=== PATIENT | female | born 1955 | race Caucasian/White ===

== ENCOUNTER 2019-12-26 10:02 | Observation (INO) ==
[2019-12-26] MEDS ORDERED: Ondansetron 4 MG/2 ML VIAL IVP ONE (10:21)
[2019-12-26 10:36] LABS: Basophils # 0.1 K/mcL (0.0-0.2); Basophils % 0.8 %; Eosinophils # 0.5 K/mcL (0.0-0.6); Eosinophils % 3.4 %; Hematocrit 42.1 % (35.3-44.9); Hemoglobin 13.6 g/dL (11.5-15.4); Immature Granulocytes % 1.2 % (0-4); Lymphocytes # 2.9 K/mcL (0.6-4.6); Lymphocytes % 18.7 %; Mean Corpuscular HGB Conc 32.3 g/dL (31.6-35.5); Mean Corpuscular Hemoglobin 29.8 pg (28.0-33.3); Mean Corpuscular Volume 92.1 fL (83.0-100.0); Mean Platelet Volume 9.3 fL (9.4-12.4); Monocytes % 6.1 %; Neutrophils # 10.8 K/mcL (1.6-8.9); Platelet Count 378 K/mcL (140-400); Red Blood Count 4.57 M/mcL (3.82-4.97); Red Cell Distribution Width 13.9 % (11.5-14.5); Segmented Neutrophils % 69.8 %; White Blood Count 15.5 K/mcL (4.3-11.1)
[2019-12-26] MEDS ORDERED: 0.9 % Sodium Chloride 1,000 ML IVC ONE (10:53)
[2019-12-26] MEDS ORDERED: Vancomycin 1,750 MG/517.5 ML IV.SOLN IVPB ONE (10:59)
[2019-12-26 11:20] LABS: BUN/Creatinine Ratio 13 (6-26); Blood Urea Nitrogen 11 mg/dL (8-23); C-Reactive Protein 66 mg/L (Less than 10); Carbon Dioxide 20 mEq/L (23-29); Chloride 101 mEq/L (98-107); Glucose 324 mg/dL (70-105); Osmolality,Calculated 290 (280-300); Potassium 3.7 mEq/L (3.5-5.1); Sodium 134 mEq/L (136-145); eGFR For African Americans > 60 (> 60); eGFR For Non-African Americans > 60 (> 60)
[2019-12-26] MEDS ORDERED: Naloxone 0.4 MG/ML INJ IVP PRN (11:52)
[2019-12-26] MEDS ORDERED: Ondansetron 4 MG/2 ML VIAL IVP PRN (11:52)
[2019-12-26] MEDS ORDERED: D5% in Water 1,000 ML IVC PRN (11:54)
[2019-12-26] MEDS ORDERED: Dextrose Gel 15 GM/37.5 ML TUBE PO PRN ×2 (11:54)
[2019-12-26] MEDS ORDERED: *HR* Dextrose 50 % in Water (Syg) 50 ML SYRINGE IVP PRN (11:54)
[2019-12-26] MEDS ORDERED: Ipratropium/Albuterol Neb 3 ML IH PRN (12:19)
[2019-12-26] MEDS: Insulin LISPRO 300 UNITS/3 ML VIAL SQ SCH ×3 (13:23→21:05)
[2019-12-26] MEDS: *HR* Heparin 5,000 UNIT/ML VIAL SQ SCH ×2 (13:30→21:11)
[2019-12-26] MEDS: 0.9 % Sodium Chloride 1,000 ML IVC SCH (13:30)
[2019-12-26] MEDS: Silvasorb 44.4 ML TUBE TP SCH (19:01)
[2019-12-26] MEDS ORDERED: Furosemide 20 MG TABLET PO PRN (19:09)
[2019-12-26] MEDS ORDERED: Lactulose Oral Soln 20 GM/30 ML UDC PO PRN (19:09)
[2019-12-26] MEDS ORDERED: Nitroglycerin 0.4 MG TAB.SUBL SL PRN (19:09)
[2019-12-26] MEDS ORDERED: Loratadine 10 MG TABLET PO SCH (21:00)
[2019-12-26] MEDS: Famotidine 20 MG TABLET PO SCH (21:03)
[2019-12-26] MEDS: hydrOXYzine pamoate 25 MG CAPSULE PO SCH (21:04)
[2019-12-26] MEDS: Insulin DETEMIR 100 UNIT/ML X5UNITS SQ SCH (21:11)
[2019-12-27] MEDS ORDERED: Vancomycin 1,750 MG/517.5 ML IV.SOLN IVPB SCH
[2019-12-27] MEDS: *HR* Heparin 5,000 UNIT/ML VIAL SQ SCH ×3 (05:52→22:04)
[2019-12-27] MEDS: 0.9 % Sodium Chloride 1,000 ML IVC SCH (05:55)
[2019-12-27 07:43] LABS: Basophils # 0.1 K/mcL (0.0-0.2); Basophils % 0.9 %; Eosinophils # 0.6 K/mcL (0.0-0.6); Eosinophils % 4.8 %; Hematocrit 39.1 % (35.3-44.9); Hemoglobin 12.4 g/dL (11.5-15.4); Immature Granulocytes % 1.6 % (0-4); Lymphocytes # 3.3 K/mcL (0.6-4.6); Lymphocytes % 25.1 %; Mean Corpuscular HGB Conc 31.7 g/dL (31.6-35.5); Mean Corpuscular Hemoglobin 29.5 pg (28.0-33.3); Mean Corpuscular Volume 93.1 fL (83.0-100.0); Mean Platelet Volume 9.3 fL (9.4-12.4); Monocytes # 0.9 K/mcL (0.0-1.3); Monocytes % 7.1 %; Platelet Count 367 K/mcL (140-400); Red Cell Distribution Width 13.9 % (11.5-14.5); Segmented Neutrophils % 60.5 %; White Blood Count 13.2 K/mcL (4.3-11.1)
[2019-12-27 08:05] LABS: BUN/Creatinine Ratio 11 (6-26); Blood Urea Nitrogen 8 mg/dL (8-23); Calcium 8.3 mg/dL (8.6-10.3); Carbon Dioxide 20 mEq/L (23-29); Chloride 107 mEq/L (98-107); Glucose 240 mg/dL (70-105); Osmolality,Calculated 288 (280-300); Potassium 4.1 mEq/L (3.5-5.1); Sodium 136 mEq/L (136-145); eGFR For African Americans > 60 (> 60); eGFR For Non-African Americans > 60 (> 60)
[2019-12-27] MEDS: Insulin LISPRO 300 UNITS/3 ML VIAL SQ SCH ×4 (08:23→22:03)
[2019-12-27] MEDS: predniSONE 10 MG TABLET PO SCH (08:24)
[2019-12-27] MEDS: Fenofibrate 54 MG TABLET PO SCH (08:24)
[2019-12-27] MEDS: Potassium Citrate 10 MEQ TABLET.ER PO SCH (08:24)
[2019-12-27] MEDS: Famotidine 20 MG TABLET PO SCH ×2 (08:25→22:02)
[2019-12-27] MEDS: Metoprolol XL (24 HR) Succ 25 MG TAB.ER.24H PO SCH (08:25)
[2019-12-27] MEDS: Folic Acid 1 MG TABLET PO SCH (08:25)
[2019-12-27] MEDS: Topiramate 100 MG TABLET PO SCH (08:25)
[2019-12-27] MEDS: Aspirin 81 MG TAB.CHEW PO SCH (08:25)
[2019-12-27] MEDS: Insulin DETEMIR 100 UNIT/ML X5UNITS SQ SCH ×2 (08:27→22:03)
[2019-12-27] MEDS: Silvasorb 44.4 ML TUBE TP SCH (08:45)
[2019-12-27] MEDS ORDERED: NON-FORMULARY MEDICATION 1 EACH EACH (Ezetimibe [Zetia] 10 MG) PO SCH (09:00)
[2019-12-27] MEDS: Vancomycin 1,500 MG/265 ML IV.SOLN IVPB SCH (12:41)
[2019-12-27] MEDS ORDERED: Insulin LISPRO 300 UNITS/3 ML VIAL SQ SCH (17:00)
[2019-12-27] MEDS: hydrOXYzine pamoate 25 MG CAPSULE PO SCH (22:02)
[2019-12-28] MEDS: Vancomycin 1,500 MG/265 ML IV.SOLN IVPB SCH ×2 (00:24→12:06)
[2019-12-28 02:41] LABS: Basophils # 0.1 K/mcL (0.0-0.2); Basophils % 1.1 %; Eosinophils # 0.6 K/mcL (0.0-0.6); Hematocrit 37.3 % (35.3-44.9); Hemoglobin 11.9 g/dL (11.5-15.4); Immature Granulocytes % 1.3 % (0-4); Lymphocytes # 3.5 K/mcL (0.6-4.6); Lymphocytes % 28.9 %; Mean Corpuscular HGB Conc 31.9 g/dL (31.6-35.5); Mean Corpuscular Hemoglobin 29.5 pg (28.0-33.3); Mean Corpuscular Volume 92.6 fL (83.0-100.0); Mean Platelet Volume 9.4 fL (9.4-12.4); Monocytes # 0.9 K/mcL (0.0-1.3); Monocytes % 7.2 %; Neutrophils # 6.8 K/mcL (1.6-8.9); Platelet Count 349 K/mcL (140-400); Red Blood Count 4.03 M/mcL (3.82-4.97); Red Cell Distribution Width 13.8 % (11.5-14.5); Segmented Neutrophils % 56.5 %
[2019-12-28 02:59] LABS: BUN/Creatinine Ratio 13 (6-26); Blood Urea Nitrogen 12 mg/dL (8-23); Calcium 8.5 mg/dL (8.6-10.3); Carbon Dioxide 22 mEq/L (23-29); Chloride 105 mEq/L (98-107); Glucose 213 mg/dL (70-105); Osmolality,Calculated 284 (280-300); Sodium 134 mEq/L (136-145); eGFR For African Americans > 60 (> 60); eGFR For Non-African Americans > 60 (> 60)
[2019-12-28] MEDS: *HR* Heparin 5,000 UNIT/ML VIAL SQ SCH ×2 (06:37→14:30)
[2019-12-28] MEDS: Insulin LISPRO 300 UNITS/3 ML VIAL SQ SCH ×2 (08:02→12:06)
[2019-12-28] MEDS: Metoprolol XL (24 HR) Succ 25 MG TAB.ER.24H PO SCH (08:03)
[2019-12-28] MEDS: Potassium Citrate 10 MEQ TABLET.ER PO SCH (08:03)
[2019-12-28] MEDS: Famotidine 20 MG TABLET PO SCH (08:03)
[2019-12-28] MEDS: Topiramate 100 MG TABLET PO SCH (08:04)
[2019-12-28] MEDS: Aspirin 81 MG TAB.CHEW PO SCH (08:04)
[2019-12-28] MEDS: Folic Acid 1 MG TABLET PO SCH (08:04)
[2019-12-28] MEDS: predniSONE 10 MG TABLET PO SCH (08:04)
[2019-12-28] MEDS: Silvasorb 44.4 ML TUBE TP SCH (08:05)
[2019-12-28] MEDS: Fenofibrate 54 MG TABLET PO SCH (08:06)
[2019-12-28] MEDS ORDERED: FEXOFENADINE 180 MG PO SCH (09:00)
[2019-12-28] MEDS ORDERED: Insulin DETEMIR 100 UNIT/ML X5UNITS SQ SCH (09:00)
[2019-12-28 11:52] VITALS: BP 133/88
[2019-12-28] MEDS ORDERED: Insulin LISPRO 300 UNITS/3 ML VIAL SQ SCH (12:00)
== END 2019-12-28 17:00 | disposition home or self-care (01) ==
LOC: 3ANU 10:02 → EMEROOARM 10:02 → SUATTDRO 11:35 → 3ANU 12:32
PROVIDERS: ADMIT Family Medicine; ATTEND Internal Medicine